=== PATIENT | female | born 1985 | race Caucasian/White ===

== ENCOUNTER 2017-03-24 21:36 | Inpatient (IN) | payer OTHER ==
[~2017-03-24] VITALS: Ht 162.6 cm; Wt 71.6 kg
[~2017-03-24 21:36] MED LIST: Motrin PO
[2017-03-24 22:03] VITALS: BP 119/78
[2017-03-24] MEDS ORDERED: PRENATAL TABLE1 EAC3 PO (22:07)
[2017-03-24 23:02] LABS: EOSINOPHIL (%) 0.2 % (0-5); IMMATURE GRANULOCYTE (%) 0.8 % (0.0-0.7); IMMATURE GRANULOCYTE COUNT 0.1 K/uL; INSTRUMENT ABS NEUTROPHIL CT 7.1 K/uL; LYMPHOCYTE COUNT 1.3 K/uL (1.0-2.8); MCH 27.4 PG (29.0-34.0); MCHC 33.8 G/DL (30.0-36.0); MCV 81.1 FL (83-99); MEAN PLAT.VOLUME 10.3 uM^3 (9.5-12.4); MONOCYTE COUNT 0.4 K/uL (0-0.8); NEUTROPHIL (%) 79.7 % (45-76); NEUTROPHIL COUNT 7.1 K/uL (1.8-6.4); PLATELET COUNT 182 K/uL (156-360); RBC DIS.WIDTH-CV 13.2 % (11.8-14.6); RBC DIS.WIDTH-SD 38.4 % (39-53); RED BLOOD COUNT 4.19 M/uL (3.80-5.20); WHITE BLOOD COUNT 8.9 K/uL (4.1-10.2)
[2017-03-25] VITALS (10 sets, daily range): BP systolic 110–138; BP diastolic 63–84
[2017-03-26 07:44] VITALS: BP 113/64
[2017-03-26 07:57] LABS: EOSINOPHIL (%) 0.6 % (0-5); EOSINOPHIL COUNT 0.1 K/uL (0-0.3); HEMATOCRIT 32.1 % (36.0-46.0); IMMATURE GRANULOCYTE (%) 1.2 % (0.0-0.7); IMMATURE GRANULOCYTE COUNT 0.1 K/uL; INSTRUMENT ABS NEUTROPHIL CT 6.6 K/uL; LYMPHOCYTE COUNT 1.8 K/uL (1.0-2.8); MCH 28.3 PG (29.0-34.0); MCV 83.4 FL (83-99); MEAN PLAT.VOLUME 10.4 uM^3 (9.5-12.4); MONOCYTE (%) 4.3 % (3-12); MONOCYTE COUNT 0.4 K/uL (0-0.8); NEUTROPHIL (%) 73.4 % (45-76); NEUTROPHIL COUNT 6.6 K/uL (1.8-6.4); PLATELET COUNT 166 K/uL (156-360); RBC DIS.WIDTH-CV 13.5 % (11.8-14.6); RBC DIS.WIDTH-SD 40.6 % (39-53); RED BLOOD COUNT 3.85 M/uL (3.80-5.20)
[2017-03-26 15:16] VITALS: BP 120/58
[2017-03-26 21:00] VITALS: BP 131/68
[2017-03-27 08:30] VITALS: BP 109/66
[2017-03-27] MEDS ORDERED: PRENATAL TABLE1 EAC3 PO (12:18)
== END 2017-03-27 12:20 | disposition home or self-care (01) | DRG 774 ==
LOC: LDRP-OP 21:36 → 2WEST 21:37 → LDRP-OP 05-02 11:49
PROVIDERS: Advanced Practice Midwife
DX: O98.82 Other maternal infectious and parasitic diseases complicating childbirth (principal); B95.1 Streptococcus, group B, as the cause of diseases classified elsewhere; Z3A.39 39 weeks gestation of pregnancy; Z37.0 Single live birth
CPT/HCPCS: 85025; G0378; J7120